=== PATIENT | female | born 1980 ===

== ENCOUNTER 2021-10-27 18:46 | Emergency (ER) | payer OTHER ==
[2021-10-27] MEDS ORDERED: Codeine/guaiFENesin 10-100 MG/5 ML Syrup 5 ML Cup PO ONE ×2 (18:47→21:16)
[2021-10-27 20:08] LABS: CORONAVIRUS COVID-19 NAA NEGATIVE (NEGATIVE)
[2021-10-27] MEDS ORDERED: Codeine/guaiFENesin 10-100 MG/5 ML Syrup 5 ML Cup ONE (21:26)
== END 2021-10-27 21:35 | disposition home or self-care (01) ==
LOC: DL.ED 18:46
DX: I88.9 Nonspecific lymphadenitis, unspecified (principal); D72.19 Other eosinophilia; R05.9 Cough, unspecified; Z79.899 Other long term (current) drug therapy; Z20.822 Contact with and (suspected) exposure to COVID-19
CPT/HCPCS: 0240U; 36415; 71045; 85025; 99283; A9270

== ENCOUNTER 2021-11-26 15:04 | Emergency (ER) | payer OTHER ==
[2021-11-26] MEDS ORDERED: Lidocaine 1% 30 ML SDV INJECT ONE ×2 (15:05→15:33)
[2021-11-26] MEDS ORDERED: Bacitracin Oint 1 GM U/D Packet TOP ONE ×2 (15:05→15:58)
== END 2021-11-26 15:09 | disposition home or self-care (01) ==
LOC: DL.ED 15:04
DX: S61.210A Laceration without foreign body of right index finger without damage to nail, initial encounter (principal); K21.9 Gastro-esophageal reflux disease without esophagitis; Z86.16 Personal history of COVID-19; W26.8XXA Contact with other sharp object(s), not elsewhere classified, initial encounter
CPT/HCPCS: 12001; 99282-25